=== PATIENT | female | born 1940 | race Caucasian/White ===

== ENCOUNTER 2025-07-12 18:50 | Emergency (ER) | payer MEDICARE, OTHER, SELFPAY ==
[2025-07-12] VITALS (31 sets, daily range): BP systolic 94–124; BP diastolic 60–90; PULSE 83–103; TEMP 37.1; O2SAT 75–97; BMI 19.0
--- NOTE | 2025-07-12 18:56 | ECG_ITS ---
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 Measurements Intervals [place] Rate: 92 P: -10 [place]: 104 QRS: 24 QRSD: 130 T: 115 QT: 384 QTc: 434 Interpretive Statements 1100 Sinus rhythm LEFT BUNDLE BRANCH BLOCK 9150 abnormal ECG Compared to ECG 07/11/2017 09:29:18 No significant changes Electronically Signed On 07-12-2025 21:01:21 EDT by SYDNEY RICKS M.D.
--- NOTE | 2025-07-12 19:07 | CT_ITS ---
The [place] [id number] Patient Name: MELITON VERNON MRN: [id number] date: 1940 Sex: F Assigned Patient Location: ED.MAIN Current Patient Location: ED.MAIN Accession/Order Number: [id number] Exam Date: 07/12/2025 19:42 Report Date: 07/12/2025 19:50 At the request of: KARAN MORTON MD Procedure: CT stroke head/brain wo con Unenhanced head CTstroke alert TECHNIQUE: Contiguous axial imaging of the head. The CT exam was performed using one or more the following dose reduction techniques: Automated exposure control, adjustment of the MA and/or Kv according to patient size, or use of the iterative reconstruction technique. COMPARISON: None HISTORY: Fell getting into chair VENTRICLES: Within normal limits ATROPHY: Diffuse atrophy BRAIN PARENCHYMA: Decreased density of the white matter is most consistent with chronic small vessel disease. HEMORRHAGE: 16mm peripheral hyperdensity in the lateral portion of the left frontal lobe. Concern for intraparenchymal hemorrhage. No localized mass effect. HERNIATION: No mass effect or herniation INFARCTION: No recent vascular distribution infarction is seen. EXTRA-AXIAL FLUID COLLECTIONS None MIDBRAIN: Unremarkable GABBY: Unremarkable MEDULLA: Unremarkable SINUSES: Unremarkable ORBITS: Grossly unremarkable MASTOIDS: Unremarkable BONY STRUCTURES Intact ADDITIONAL FINDINGS: CT/CT stroke head/brain wo con IMPRESSION: 16 mm hyperdense focus in the parenchyma in the subcortical lateral aspect of the left frontal lobe concerning for intraparenchymal hematoma. Preliminary 7:45 PM 07/12/2025 Impression dictated by: Jordon Sexton M.D. 07/12/2025 7:50 PM Dictation Location: [place] Electronically authenticated by: [id number] Y Date: 07/12/2025 19:50
--- NOTE | 2025-07-12 19:07 | CT_ITS ---
[place] [id number] Patient Name: MELITON VERNON MRN: [id number] date: 1940 Sex: F Assigned Patient Location: ER Current Patient Location: ED.MAIN Accession/Order Number: [id number] Exam Date: 07/12/2025 19:51 Report Date: 07/12/2025 19:57 At the request of: KARAN MORTON MD Procedure: CT cervical spine wo con CT Cervical Spine withoutcontrast TECHNIQUE: Axial imaging with 2-D and 3-D reconstruction. The CT exam was performed using one or more the following dose reduction techniques: Automated exposure control, adjustment of the MA and/or Kv according to patient size, or use of the iterative reconstruction technique. COMPARISON: None HISTORY: Fell. POST SURGERY CHANGES: None BONY ALIGNMENT: Straightening with multilevel mild listhesis. BONY SPINAL CANAL: Levels of bony central canal narrowing. FRACTURE: None BONY LESIONS: None SOFT TISSUES: Unremarkable DEGENERATIVE CHANGES: None LUNG APICES: Unremarkable ADDITIONAL FINDINGS: Vascular surgical clips atherosclerosis of the carotid bifurcations CT/CT cervical spine wo con IMPRESSION: No acute process Impression dictated by: Jordon Sexotn M.D. 07/12/2025 7:57 PM Dictation Location: [place] [address] Electronically authenticated by: [id number] Y Date: 07/12/2025 19:57
--- NOTE | 2025-07-12 19:08 | PC.NURSE ---
Report received --pt in CT at this time.
--- NOTE | 2025-07-12 19:21 | XR_ITS ---
The [place] [id number] Patient Name: MELITON VERNON MRN: [id number] date: 1940 Sex: F Assigned Patient Location: ED.MAIN Current Patient Location: ED.MAIN Accession/Order Number: [id number] Exam Date: 07/12/2025 19:57 Report Date: 07/12/2025 19:58 At the request of: EDGARDO PENA MD Procedure: XR pelvis 1-2V Single view of the pelvis plain film HISTORY: Fell. COMPARISON: None ACUTE FINDINGS: None BONY ALIGNMENT: Adequate SOFT TISSUES: Unremarkable DEGENERATIVE CHANGE:Unremarkable INTRAPELVIC STRUCTURES: High density material throughout the colon. Numerous diverticuli. POSTSURGICAL CHANGES:Fixation hardware lumbosacral spine. Right groin surgical clips XR/XR pelvis 1-2V IMPRESSION:No acute displaced fracture. High density material within the colon obscuring detail. Impression dictated by: Jordon Sexton M.D. 07/12/2025 7:58 PM Dictation Location: [place] [address] Electronically authenticated by: [id number] Y Date: 07/12/2025 19:58
--- NOTE | 2025-07-12 19:21 | XR_ITS ---
The [address] [address] Patient Name: MELITON VERNON MRN: [id number] date: 1940 Sex: F Assigned Patient Location: ED.MAIN Current Patient Location: ER Accession/Order Number: [id number] Exam Date: 07/12/2025 20:02 Report Date: 07/12/2025 20:20 At the request of: EDGARDO PENA MD Procedure: XR chest 1V Plain film chest Single view HISTORY: Fell. COMPARISON: None FINDINGS: SUPPORT DEVICES: None POSTSURGICAL CHANGES: None HEART: Within normal limits PULMONARY SARY: Within normal limits MEDIASTINUM: Unremarkable LUNGS AND PLEURA: No acute lung process, pleural effusion or pneumothorax identified. BONY STRUCTURES: Intact ADDITIONAL FINDINGS None XR/XR chest 1V IMPRESSION: No acute process. Impression dictated by: Jordon Sexton M.D. 07/12/2025 8:20 PM Dictation Location: [place] [address] Electronically authenticated by: [id number] Y Date: 07/12/2025 20:20
--- NOTE | 2025-07-12 19:22 | ED_ITS ---
HPI HPI - General Adult General Chief complaint: Fall Stated complaint: other Time Seen by Provider: 07/12/25 18:55 Source: medical record Mode of arrival: ambulance Limitations: altered mental status History of Present Illness HPI narrative: 85-year old female presented to the emergency department from [facility] after an unwitnessed fall. She is nonverbal for us and we do not know what her baseline is upon arrival. She has not answered any of her questions. No further history is obtainable. 8:00 PM the patient's daughter is here now and the patient is now conversing with us. Her speech is somewhat more difficult to understand than her baseline. According to the patient's daughter she was released from [facility] last week. Related Data Allergies Allergy/AdvReac Type Severity Reaction Status Date / Time acetaminophen (From Vicodin) Allergy Unknown Unknown Verified 07/12/25 19:03 hydrocodone Allergy Unknown Unknown Verified 07/12/25 19:03 Review of Systems ROS Narrative Not obtainable, nonverbal Exam Narrative Exam Narrative: Nurses note and vital signs reviewed and patient is not hypoxic. General: The patient appears in no acute respiratory distress. She opens her eyes and looks around the room. Skin: Warm, dry, no pallor noted. There is no rash noted. Head: Normocephalic, atraumatic; no hematomas are noted on her scalp. No lacerations. Eye: Normal conjunctiva, no drainage Ears, Nose, Mouth, and Throat: oral mucosa is moist. Nares patent. Cardiovascular: Regular Rate and Rhythm Respiratory: Patient is in no distress, no accessory muscle use, lungs are clear to auscultation, no wheezing, rales or rhonchi GI: Soft and nontender Musculoskeletal: Palpation of all 4 extremities shows no apparent discomfort. Rocking of the pelvis shows no discomfort Neurological: Nonverbal. Does not follow commands. Opens her eyes and looks around the room. Psychiatric: Cannot be assessed Constitutional Vital Signs, click to edit/add: Last Vital Signs Temp 98.8 F 07/12/25 18:55 Pulse 88 07/12/25 18:55 Resp 20 07/12/25 18:55 BP 97/77 07/12/25 18:55 Pulse Ox 97 07/12/25 19:52 O2 Del Method Room Air 07/12/25 19:52 Course Vital Signs Vital signs: Vital Signs Temperature 98.8 F 07/12/25 18:55 Pulse Rate 88 07/12/25 18:55 Respiratory Rate 20 07/12/25 18:55 Blood Pressure 97/77 07/12/25 18:55 Pulse Oximetry 96 07/12/25 18:55 Temperature 98.8 F 07/12/25 18:55 Pulse Rate 88 07/12/25 18:55 Respiratory Rate 20 07/12/25 18:55 Blood Pressure 97/77 07/12/25 18:55 Pulse Oximetry 97 07/12/25 19:52 Oxygen Delivery Method Room Air 07/12/25 19:52 Medical Decision Making MDM Narrative Medical decision making narrative: The patient was found to have left hemispheric intraparenchymal hemorrhage, frontal lobe. CT C-spine is negative. Case is discussed with the patient's daughter who is requesting transfer to [facility] where the patient has received her recent medical care. The patient is stable for transfer and family is agreeable. There is going to be a prolonged wait for ground transportation so [facility] is requesting helicopter transport and this is being carried out. Findings were discussed thoroughly with the patient's family. Differential Diagnosis Differential Diagnosis: Intracranial hemorrhage, C-spine fracture, contusion Lab Data Lab results reviewed: Yes I reviewed the patient's lab results Labs: Lab Results 07/12/25 07/12/25 07/12/25 Range/Units 19:21 19:25 19:29 WBC 15.6 H (4.0-11.0) 10^3/uL RBC 2.39 L (4.20-5.40) 10^6/uL Hgb 8.4 L (12.0-16.0) g/dL Hct 25.5 L (36.0-48.0) % MCV 106.7 H (81.0-99.0) fL MCH 35.1 H (26.7-34.0) pg MCHC 32.9 (29.9-35.2) g/dL RDW 14.6 (11.0-15.0) % Plt Count 283 (150-450) 10^3/uL MPV 11.1 (9.5-13.5) fL Neut % (Auto) 77.5 H (43.0-75.0) % Lymph % (Auto) 13.4 L (20.5-60.0) % [place] % (Auto) 7.5 (1.7-12.0) % Eos % (Auto) 1.0 (0.9-7.0) % Baso % (Auto) 0.2 (0.2-2.0) % Neut # (Auto) 12.1 H (1.4-6.5) 10^3/uL Lymph # (Auto) 2.1 (1.2-3.8) 10^3/uL [place] # (Auto) 1.2 H (0.3-0.8) 10^3/uL Eos # (Auto) 0.2 (0.0-0.7) 10^3/uL Baso # (Auto) 0.0 (0.0-0.1) 10^3/uL Abs Immat Gran (auto) 0.07 H (0.00-0.03) 10^3/uL Imm/Tot Granulo (auto) 0.4 (0.0-0.5) % PT 11.3 (9.0-11.6) sec INR 1.07 Sodium 136 (136-145) mmol/L Potassium 3.7 (3.5-5.1) mmol/L Chloride 99 (98-107) mmol/L Carbon Dioxide 29.3 (21.0-32.0) mmol/L Anion Gap 11.4 BUN 22.0 H (7.0-18.0) mg/dL Creatinine 0.64 (0.55-1.02) mg/dL Est GFR ( Amer) >60 (>=60 mL/min/1.73m^2) Est GFR (Non-Af Amer) >60 (>=60 mL/min/1.73m^2) BUN/Creatinine Ratio 34.4 Glucose 122 H (74-106) mg/dL Lactate 1.6 (0.4-2.0) mmol/L Calcium 9.1 (8.5-10.1) mg/dL Total Bilirubin 0.6 (0.2-1.0) mg/dL AST 18 (15-37) U/L ALT 20 (14-59) U/L Alkaline Phosphatase 117 H (46-116) U/L Troponin I High Sens 29.1 (4.0-51.3) pg/mL Total Protein 6.3 L (6.4-8.2) g/dL Albumin 2.6 L (3.4-5.0) g/dL Globulin 3.7 g/dL Albumin/Globulin Ratio 0.7 Urine Color Yellow (YELLOW) Urine Clarity Clear (CLEAR) Urine pH 6.0 (5.0-9.0) Ur Specific [place] 1.025 (1.005-1.025) Urine Protein 100 A (NEG/TRACE) mg/dL Urine Glucose (UA) Negative (NEGATIVE) mg/dL Urine Ketones Trace A (NEGATIVE) mg/dL Urine Occult Blood Negative (NEGATIVE) Urine Nitrite Negative (NEGATIVE) Urine Bilirubin Negative (NEGATIVE) Urine Urobilinogen 4.0 A (0.2-1.0) EU/dL Ur Leukocyte Esterase Negative (NEGATIVE) Urine RBC 0-2 (0-2) #/HPF Urine WBC None seen (NONE SEEN) #/HPF Ur Squamous Epith Cells Few A (NONE/RARE) #/LPF Urine Crystals None seen (None Seen) #/HPF Urine Bacteria Small A (NONE SEEN) #/HPF Urine Casts None seen (NONE SEEN) #/LPF Urine Mucus Small A (NONE SEEN) Ur Culture Indicated? Yes-[facility] [place] POC Glucose 131 H (74-106) mg/dL Imaging Data CT scan - head: Radiologist's impression: ITS Impressions Brain CT 07/12/25 19:07 IMPRESSION: 16 mm hyperdense focus in the parenchyma in the subcortical lateral aspect of the left frontal lobe concerning for intraparenchymal hematoma. Preliminary 7:45 PM 07/12/2025 Impression dictated by: Jordon Sexton M.D. 07/12/2025 7:50 PM Dictation Location: [employer] Electronically authenticated by: [id number] Y Date: 07/12/2025 19:[address] 07/12/25 19:07 IMPRESSION: No acute process Impression dictated by: Jordon Sexton M.D. 07/12/2025 7:57 PM Dictation Location: [employer] Electronically authenticated by: [id number] Y Date: 07/12/2025 19:57 Chest X-Ray 07/12/25 19:21 IMPRESSION: No acute process. Impression dictated by: Jordon Sexton M.D. 07/12/2025 8:20 PM Dictation Location: [facility] Electronically authenticated by: [id number] Y Date: 07/12/2025 20:20 Pelvis X-Ray 07/12/25 19:21 IMPRESSION:No acute displaced fracture. High density material within the colon obscuring detail. Impression dictated by: Jordon Sexton M.D. 07/12/2025 7:58 PM Dictation Location: [facility] Electronically authenticated by: [id number] Y Date: 07/12/2025 19:58 Hand X-Ray 07/12/25 20:02 IMPRESSION: No acute displaced fracture. Extensive degenerative changes greatest in the first interphalangeal joint. Impression dictated by: Jordon Sexton M.D. 07/12/2025 8:45 PM Dictation Location: [employer] Electronically authenticated by: [id number] Y Date: 07/12/2025 20:45 ECG Data Attestation: I personally reviewed and interpreted this ECG as follows: (EKG on my interpretation shows normal sinus rhythm with a rate of 92) Critical Care Time Critical Care Time Critical Care Time: Yes Total Critical Care Time: 60 Attestation: Due to the high probability of sudden and clinically significant deterioration in the patient's condition he/she required the highest level of my preparedness to intervene urgently I provided critical care time including documentation time, medication orders and management, reevaluation, vital sign assessment, ordering and reviewing of lab tests, ordering and reviewing of x-ray studies, and admission orders. Aggregate critical care time is 60 minutes including only time during which I was engaged in work directly related to his/her care and did not include time spent treating other patients simultaneously. Discharge Plan Discharge Chief Complaint: Fall Clinical Impression: Intracranial hemorrhage Patient Disposition: [facility] Time of Disposition Decision: 20:48 Discharge Location: [facility] Condition: Fair Mode of Transportation: [employer]
[2025-07-12 19:50] LABS: Hematocrit 25.5 % (36.0-48.0); Hemoglobin 8.4 g/dL (12.0-16.0); Immature Granulocytes Abs Auto 0.07 10^3/uL (0.00-0.03); Immature Granulocytes Pct Auto 0.4 % (0.0-0.5); Lymphocytes Absolute Auto 2.1 10^3/uL (1.2-3.8); Mean Corpuscular HGB Conc 32.9 g/dL (29.9-35.2); Mean Corpuscular Hemoglobin 35.1 pg (26.7-34.0); Platelet Count 283 10^3/uL (150-450); Red Blood Count 2.39 10^6/uL (4.20-5.40); White Blood Count 15.6 10^3/uL (4.0-11.0)
[2025-07-12 19:50] LABS: Glucose Urine UA NEGATIVE (NEGATIVE)
--- NOTE | 2025-07-12 20:02 | XR_ITS ---
The [place] [id number] Patient Name: MELITON VERNON MRN: [id number] date: 1940 Sex: F Assigned Patient Location: ER Current Patient Location: ER Accession/Order Number: [id number] Exam Date: 07/12/2025 20:41 Report Date: 07/12/2025 20:45 At the request of: EDGARDO PENA MD Procedure: XR hand RT min 3V 4 views right hand plain film COMPARISON: None HISTORY: Fell. Right thumb injury. ACUTE FINDINGS: None DEGENERATIVE CHANGE: Extensive first interphalangeal degeneration. Degenerative subluxation. Small bony fragment. Additional moderate interphalangeal degeneration of the hand. Moderate first carpometacarpal degenerative changes. SOFT TISSUE FINDINGS: Unremarkable JOINT EFFUSION: None POSTOP CHANGES: None BONY MINERALIZATION: Adequate XR/XR hand RT min 3V IMPRESSION: No acute displaced fracture. Extensive degenerative changes greatest in the first interphalangeal joint. Impression dictated by: Jordon Sexton M.D. 07/12/2025 8:45 PM Dictation Location: [place] [address] Electronically authenticated by: [id number] Y Date: 07/12/2025 20:45
[2025-07-12 20:03] LABS: INR 1.07; Prothrombin Time 11.3 sec (9.0-11.6)
[2025-07-12 20:11] LABS: Cast Seen? NONE SEEN #/LPF (NONE SEEN); Crystals Seen? None Seen #/HPF (None Seen); Urine Culture Indicated YES-FRMC
[2025-07-12 20:12] LABS: Lactate/Lactic Acid 1.6 mmol/L (0.4-2.0); Mean Corpuscular Volume 106.7 fL (81.0-99.0)
[2025-07-12 20:13] LABS: Alanine Aminotransferase 20 U/L (14-59); Albumin Globulin Ratio 0.7; Albumin Level 2.6 g/dL (3.4-5.0); Alkaline Phosphatase 117 U/L (46-116); Anion Gap 11.4; Aspartate Amino Transferase 18 U/L (15-37); Blood Urea Nitrogen 22.0 mg/dL (7.0-18.0); Calcium 9.1 mg/dL (8.5-10.1); Carbon Dioxide 29.3 mmol/L (21.0-32.0); Chloride 99 mmol/L (98-107); Estimated GFR (African America >60 (>=60 mL/min/1.73m^2); Estimated GFR (Non-African Ame >60 (>=60 mL/min/1.73m^2); Globulin 3.7 g/dL; Glucose 122 mg/dL (74-106); Potassium 3.7 mmol/L (3.5-5.1); Sodium 136 mmol/L (136-145); Total Protein 6.3 g/dL (6.4-8.2)
== END 2025-07-12 22:55 | disposition short-term general hospital (02) ==
PROVIDERS: Emergency Medicine; Emergency Provider Emergency Medicine; PCP Family Medicine
DX: S06.350A Traumatic hemorrhage of left cerebrum without loss of consciousness, initial encounter (principal); M19.042 Primary osteoarthritis, left hand; R41.82 Altered mental status, unspecified
CPT/HCPCS: 36415; 70450; 71045; 72125; 72170; 73130; 80053; 81001; 83605; 84484; 85025; 85610; 87086; 93005; 99285